=== PATIENT | female | born 1985 | race African-American/Black ===

== ENCOUNTER 2017-02-09 02:47 | Emergency (ER) | payer MEDICAID ==
[~2017-02-09] VITALS: Ht 167.6 cm; Wt 71.0 kg
[2017-02-09] MEDS ORDERED: TETANUS, DIPHTHERIA, PERTUSSIS VAC/PF 0.5ML (>7YR OLD) IM ONE (05:45)
[2017-02-09] MEDS ORDERED: LIDOCAINE HCL 1%/EPI 1:200,000 30 ML VIAL MC ONE (05:45)
[2017-02-09] MEDS ORDERED: BACITRACIN ZINC OINT UDPKT TOP ONE (05:45)
[2017-02-09] MEDS ORDERED: ONDANSETRON 4MG ODT PO ONE (06:30)
[2017-02-09] MEDS ORDERED: KETOROLAC 30MG/ML VIAL IM ONE (06:30)
[2017-02-09 07:10] VITALS: BP 122/74
== END 2017-02-09 07:21 | disposition home or self-care (01) ==
LOC: ER 02:47
DX: L02.01 Cutaneous abscess of face (principal); F17.200 Nicotine dependence, unspecified, uncomplicated
CPT/HCPCS: 10060; 81025; 90471; 90715; 96372; 99284; J1885; Z7610; Q0162

== ENCOUNTER 2017-02-11 01:12 | Emergency (ER) | payer MEDICAID ==
[~2017-02-11] VITALS: Ht 167.6 cm; Wt 71.0 kg
[2017-02-11 06:05] VITALS: BP 130/72
== END 2017-02-11 06:42 | disposition home or self-care (01) ==
LOC: ER 01:12
DX: Z48.01 Encounter for change or removal of surgical wound dressing (principal); F17.200 Nicotine dependence, unspecified, uncomplicated
CPT/HCPCS: 99283

== ENCOUNTER 2017-08-10 20:03 | Emergency (ER) | payer MEDICAID | END 2017-08-10 20:47 | disposition left against medical advice (07) | LOC: ER 20:03 | DX: M79.89 Other specified soft tissue disorders (principal); Z53.21 Procedure and treatment not carried out due to patient leaving prior to being seen by health care provider ==

== ENCOUNTER 2020-07-19 17:14 | Emergency (ER) | payer MEDICAID ==
[~2020-07-19] VITALS: Ht 167.6 cm; Wt 78.0 kg
[2020-07-19] MEDS ORDERED: IBUPROFEN 600MG TABLET PO ONE (18:45)
[2020-07-19] MEDS ORDERED: IBUP-2028 MT (20:41)
[2020-07-19] MEDS ORDERED: HYDR-4001 MT (20:41)
[2020-07-19 21:42] VITALS: BP 124/90
== END 2020-07-19 21:43 | disposition home or self-care (01) ==
LOC: ER 17:14
DX: R68.84 Jaw pain (principal); R51.9 Headache, unspecified
CPT/HCPCS: 70486; 99285

== ENCOUNTER 2020-09-20 01:54 | Emergency (ER) | payer MEDICAID ==
[~2020-09-20] VITALS: Ht 167.6 cm; Wt 73.0 kg
[~2020-09-20 01:54] MED LIST: HYDR-4001 MT; IBUP-2028 MT
[2020-09-20 02:13] VITALS: BP 133/95
[2020-09-20] MEDS ORDERED: FAMOTIDINE 20MG TABLET PO ONE (02:45)
[2020-09-20] MEDS ORDERED: PREDNISONE 20MG TABLET PO ONE (02:45)
[2020-09-20] MEDS ORDERED: FAMO-135 MT (03:09)
[2020-09-20] MEDS ORDERED: P20 MT (03:09)
[2020-09-20] MEDS ORDERED: VALA100044 MT (03:09)
[2020-09-20] MEDS ORDERED: T3 PO (03:10)
== END 2020-09-20 03:53 | disposition home or self-care (01) ==
LOC: ER 02:06
DX: B02.21 Postherpetic geniculate ganglionitis (principal); K25.9 Gastric ulcer, unspecified as acute or chronic, without hemorrhage or perforation; F15.10 Other stimulant abuse, uncomplicated; F17.200 Nicotine dependence, unspecified, uncomplicated; Z79.899 Other long term (current) drug therapy
CPT/HCPCS: 99283; J7512